=== PATIENT | female | born 1995 | race Caucasian/White ===

== ENCOUNTER 2019-03-19 18:20 | Emergency (ER) | payer MEDICAID ==
[~2019-03-19] VITALS: Ht 154.9 cm; Wt 59.0 kg
[~2019-03-19 18:20] MED LIST: HYDR-4383 PO; LIDOcaine 1% W/epiNEPHrine 1:100,000 20ml vial ONE; LIDOcaine 1% w/EPI 1:100,000 30ml vial (MDV) ONE; ONDA8TAB9 PO
[2019-03-19 18:45] VITALS: BP 114/66
[2019-03-19] MEDS ORDERED: SULF1TAB49 PO (19:03)
[2019-03-19] MEDS ORDERED: CEPH500C5 PO (19:03)
== END 2019-03-19 19:24 | disposition home or self-care (01) ==
LOC: ER 18:20
DX: L02.415 Cutaneous abscess of right lower limb (principal); F15.90 Other stimulant use, unspecified, uncomplicated; F11.90 Opioid use, unspecified, uncomplicated; Z88.6 Allergy status to analgesic agent; Z79.899 Other long term (current) drug therapy
CPT/HCPCS: 10060; 99283

== ENCOUNTER 2019-07-10 21:55 | Emergency (ER) | payer MEDICAID ==
[~2019-07-10] VITALS: Ht 157.5 cm; Wt 55.0 kg
[~2019-07-10 21:55] MED LIST changes: -LIDOcaine 1% W/epiNEPHrine 1:100,000 20ml vial ONE; -LIDOcaine 1% w/EPI 1:100,000 30ml vial (MDV) ONE
[2019-07-10] MEDS ORDERED: LIDOcaine 1% W/epiNEPHrine 1:200,000 10ml vial IJ ONE (22:10)
[2019-07-10] MEDS ORDERED: cephalexin 250mg capsule PO ONE (22:15)
[2019-07-10] MEDS ORDERED: sulfamethoxazole/trimethoprim DS (800/160mg) tablet PO ONE (22:15)
[2019-07-10] MEDS ORDERED: acetaminophen 325mg tablet PO ONE (22:15)
[2019-07-10] MEDS ORDERED: BACDS PO (23:33)
[2019-07-10] MEDS ORDERED: CEPH500C5 PO (23:33)
[2019-07-10 23:46] VITALS: BP 120/48
== END 2019-07-10 23:47 | disposition home or self-care (01) ==
LOC: ER 21:56
DX: L02.416 Cutaneous abscess of left lower limb (principal); F17.210 Nicotine dependence, cigarettes, uncomplicated; F10.99 Alcohol use, unspecified with unspecified alcohol-induced disorder; F15.90 Other stimulant use, unspecified, uncomplicated; F11.90 Opioid use, unspecified, uncomplicated; Z88.6 Allergy status to analgesic agent; Z79.899 Other long term (current) drug therapy; Y90.9 Presence of alcohol in blood, level not specified
CPT/HCPCS: 10060; 99284

== ENCOUNTER 2019-08-07 23:33 | Emergency (ER) | payer MEDICAID ==
[~2019-08-07] VITALS: Ht 154.9 cm; Wt 60.6 kg
[~2019-08-07 23:33] MED LIST changes: +BACDS PO; +CEPH500C5 PO
[2019-08-08] MEDS ORDERED: LIDOcaine 1% W/epiNEPHrine 1:200,000 10ml vial IJ ONE (00:30)
[2019-08-08] MEDS ORDERED: DOXY100C43 PO (00:31)
[2019-08-08] MEDS ORDERED: acetaminophen 325mg tablet PO ONE (01:00)
[2019-08-08 01:16] VITALS: BP 145/87
== END 2019-08-08 01:17 | disposition home or self-care (01) ==
LOC: ER 23:33
DX: N61.1 Abscess of the breast and nipple (principal); F15.90 Other stimulant use, unspecified, uncomplicated; F11.90 Opioid use, unspecified, uncomplicated; Z88.6 Allergy status to analgesic agent
CPT/HCPCS: 10060; 10160; 99284